=== PATIENT | male | born 1990 | race Caucasian/White ===

== ENCOUNTER 2019-06-23 18:14 | Emergency (ER) | payer SELFPAY ==
[~2019-06-23] VITALS: Ht 162.6 cm; Wt 56.7 kg
--- NOTE | 2019-06-23 18:15 | NUR ---
PT BIBA AND TRANSFERRED TO BED 8 WITH [facility]P AT BEDSIDE.
[2019-06-23 18:18] VITALS: BP 138/79
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
--- NOTE | 2019-06-23 18:37 | NUR ---
CLYDE Barbour evaluating patient at bedside.
[2019-06-23] MEDS ORDERED: ACETAMINOPHEN EXTRA STRENGTH 500 MG TAB PO ONE (18:45)
--- NOTE | 2019-06-23 18:52 | NUR ---
Patient taken to XRAY via wheelchair by tech.
--- NOTE | 2019-06-23 19:09 | NUR ---
RECEIVED REPORT FROM AM NURSE; NO ACUTE DISTRESS. VSS. WILL CONTINUE TO OBSERVE
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
[2019-06-23 20:10] VITALS: BP 113/68
--- NOTE | 2019-06-23 20:11 | NUR ---
DPatient discharged with v/s stable. Written and verbal after care instructions given and explained. Patient alert, oriented and verbalized understanding of instructions. Ambulatory with steady gait. All questions addressed prior to discharge. ID band removed. Patient advised to follow up with PMD. Rx of TYLENOL given. Patient educated on indication of medication including possible reaction and side effects. Opportunity to ask questions provided and answered.
== END 2019-06-23 20:11 | disposition home or self-care (01) ==
LOC: MED 18:14
DX: S83.91XA Sprain of unspecified site of right knee, initial encounter (principal); S90.32XA Contusion of left foot, initial encounter; V23.4XXA Motorcycle driver injured in collision with car, pick-up truck or van in traffic accident, initial encounter; Y93.55 Activity, bike riding; Y92.410 Unspecified street and highway as the place of occurrence of the external cause; Y99.8 Other external cause status
CPT/HCPCS: 29505; 73562; 73630; 99283